=== PATIENT | male | born 1965 | race Caucasian/White ===

== ENCOUNTER → 2019-10-26 | Outpatient (REF) | payer BC | LOC: M SMT 13:24 | PROVIDERS: ATTEND Nurse Practitioner Family | DX: R97.20 Elevated prostate specific antigen [PSA] (principal) ==

== ENCOUNTER → 2019-11-29 | Outpatient (CLI) | payer BC ==
--- NOTE | 2019-11-29 13:03 | REPPI ---
Prostate sonography: History: Elevated PSA Sonographic findings: Trans rectal prostate sonography demonstrates unremarkable seminal vesicles. Prostate gland is heterogeneously enlarged with calcifications and cystic changes noted. Glandular dimensions are measured at 4.5 x 3.1 x 4.3 cm with a calculated glandular volume of 31.7 ml. Transrectal sonographic guidance is provided to Dr. Mendez who performed trans rectal ultrasound guided needle biopsy procedure . Electronically Signed by Aaron Cruz MD 11/29/2019 12:54 P
== END ==
LOC: M SMT PRO 09:05
PROVIDERS: ATTEND Urology
DX: C61 Malignant neoplasm of prostate (principal)
CPT/HCPCS: 76872; 76942; 88342; G0416

== ENCOUNTER → 2021-02-05 | Outpatient (CLI) | payer BC ==
--- NOTE | 2021-02-05 13:07 | REPPI ---
INDICATION: ELEVATED PSA. Malignant neoplasm of the prostate. COMPARISON: Comparison study November 29, 2019.. TECHNIQUE: Transrectal prostate sonography. FINDINGS: Trans rectal prostate sonography is performed for prostate measurements. Glandular dimensions are measured at 4.7 x 3.0 x 4.5 cm with a calculated glandular volume of 33.3 ml. Transrectal sonographic guidance is provided to Dr. Mendez who performed trans rectal ultrasound guided needle biopsy procedure. IMPRESSION: Transrectal prostate sonographic findings as above. <Electronically signed by Yosi Cruz > 02/05/21 [id number]
== END ==
LOC: M SMT PRO 10:54
PROVIDERS: ATTEND Urology
DX: C61 Malignant neoplasm of prostate (principal)

== ENCOUNTER → 2022-03-24 | Outpatient (REF) | payer BC | LOC: M SMT PRO 09:11 | PROVIDERS: ATTEND Urology | DX: C61 Malignant neoplasm of prostate (principal) ==